=== PATIENT | female | born 1945 | race Caucasian/White ===

== ENCOUNTER 2023-11-29 13:16 | Emergency (ER) | payer OTHER, SELFPAY ==
[2023-11-29 13:22] VITALS: BP 151/83
--- NOTE | 2023-11-29 15:14 | ED.GENMED ---
History of Present Illness
General
Chief Complaint: Head Injury
Source: patient
Exam Limitations: none
Time Seen by Provider: 11/29/23 14:32
Nursing documentation reviewed up to this point in time: agreed with
History of Present Illness
History of Present Illness:
Patient is a 78-year-old female who presents today for evaluation. Patient reports she was walking her dog and she describes tripping hitting her face on the pavement at a local park. She denies loss of consciousness she got herself up and started
walking home and picked her up. She denies any headache nausea vomiting neck pain. She denies any extremity pain. She report she did chipped her front teeth and she has abrasions lacerations above her upper lip. She is not on blood
thinners.
Review of Systems
Review of Systems
Allergies reviewed?: Yes
All Other Systems: ROS reviewed and negative except as documented in HPI and ROS
Constitutional: Reports no symptoms; Denies fever, fatigue or chills
EENT: Reports other (Patient chipped her front tooth)
Musculoskeletal: Denies neck pain or back pain
Skin: Reports other (Laceration above lip to face)
Neurological: Reports other (No loss of conscious no headache); Denies dizzy or headache
Psychiatric: Reports no symptoms
Phy Exam
General Physical Exam
General Presentation: no apparent distress
General age: appears stated age
General Skin: warm and dry
General Habitus: normal
General Mental: alert
ENT Exam
ENT Exam: EOMI and other (Patient with left front chipped tooth)
Eye Exam
Eye Exam: PERRL and EOMI
Eye Exam General: PERRL: bilateral and EOM intact: bilateral
Pupil Exam: Bilateral: round and reactive
Skin Exam
Skin Exam: normal color, warm/dry and other (+ 2 cm laceration flap above upper lip not involving lip with surrounding abrasion)
Psychiatric Exam
Psychiatric Exam: normal mood/affect
Course
Vital Signs
Initial and Last Documented VS:
Initial Vital Signs
Pulse Resp BP Pulse Ox
87 16 151/83 96
11/29/23 13:22 11/29/23 13:22 11/29/23 13:22 11/29/23 13:22
Last Documented Vital Signs
Pulse Resp BP Pulse Ox
87 16 151/83 96
11/29/23 13:22 11/29/23 13:22 11/29/23 13:22 11/29/23 13:22
Procedures
Laceration Closure
Face:
Status of Wound: clean
Size of Wound in cm: 2
Description of Wound Edges: sharp and flap-well vascularized
Preparation: cleaned with saline
Anesthesia: 1% Lidocaine with epi
Revision/Debridement: routine- no revision
Type of Closure: single layer closure
Skin Closure Material: 6-0 nylon
Number of sutures: 3
MDM/Problems Addressed
MDM/Problems Addressed:
Patient is a 78-year-old female not on blood thinners describes mechanical fall while walking her dog. She landed on her face she denies hitting her head she denies loss of conscious got her set up recalls all events. She complains only of
abrasions and lacerations above her lip and slightly chipped tooth. She presents awake alert no acute distress normal neurologic exam wound repaired as documented. Tetanus is up-to-date, wound care reviewed with patient. We discussed CAT scan of
head however patient reports she did not hit her head does not have a headache and with normal neurologic exam we will hold off however discussed head injury instructions
*Critical Care Note
Total Time (30-74mins, 75-104mins- exclusive of procedures): Not Applicable
ED Attending Note
-
Portions of this chart may have been created with voice recognition software.� Occasional wrong word or��sound alike� substitutions may have occurred due to the inherent limitations of voice recognition software.
Discharge Plan
Departure
Patient Disposition: Home (Routine Discharge)
Date of Disposition: 11/29/23
Time of Disposition: 15:16
Patient with high blood pressure during this ER visit?: Yes
Condition: Fair
Covid-19: Not Applicable
Discharge Problem:
Fall, Laceration, Abrasion, tooth injury
Instructions: Laceration Repair With Stitches (DC), Abrasions ED, Dental Pain ED, Wound Care ED
Referrals:
Timur Moreno MD [Family Provider] -
Activity Restrictions/Additional Instructions:
Keep laceration clean and dry for 24 hours after 24 hours wash twice a day with soap and water pat dry and apply small layer of antibiotic open to the area. Sutures are to be removed in 5 days. Return if any signs of infection of increased pain
swelling redness drainage fever chills. Regarding your chipped front tooth. Please call your dentist. Return if any headaches nausea vomiting dizziness difficulty walking unsteady balance.
Discharge Date and Time
Print Language: CHILEAN
== END 2023-11-29 15:36 | disposition home or self-care (01) ==
LOC: EMR 13:16
PROVIDERS: EMERGENCY PHYSICIAN Emergency Medicine; FAMILY PHYSICIAN Family Medicine
DX: S02.5XXA Fracture of tooth (traumatic), initial encounter for closed fracture (principal); S01.511A Laceration without foreign body of lip, initial encounter; S01.81XA Laceration without foreign body of other part of head, initial encounter; S00.81XA Abrasion of other part of head, initial encounter; W01.0XXA Fall on same level from slipping, tripping and stumbling without subsequent striking against object, initial encounter; Y93.K1 Activity, walking an animal; Y92.830 Public park as the place of occurrence of the external cause; R03.0 Elevated blood-pressure reading, without diagnosis of hypertension; Z88.1 Allergy status to other antibiotic agents
CPT/HCPCS: 99282; 12011

== ENCOUNTER → 2024-02-22 15:57 | Outpatient (REF) | payer OTHER, SELFPAY | LOC: WDC 15:57 | PROVIDERS: ATTENDING PHYSICIAN Family Medicine | DX: Z12.31 Encounter for screening mammogram for malignant neoplasm of breast (principal) | CPT/HCPCS: 77063; 77067 ==

== ENCOUNTER → 2024-03-29 09:39 | Outpatient (REF) | payer MEDICARE, SELFPAY | LOC: RAD 09:39 | PROVIDERS: ATTENDING PHYSICIAN Family Medicine | DX: J10.1 Influenza due to other identified influenza virus with other respiratory manifestations (principal) | CPT/HCPCS: 71046 ==

== ENCOUNTER → 2024-06-02 14:17 | Outpatient (REF) | payer MEDICARE, SELFPAY | LOC: HWRAD 14:17 | PROVIDERS: ATTENDING PHYSICIAN Internal Medicine Rheumatology; FAMILY PHYSICIAN Family Medicine | DX: M81.0 Age-related osteoporosis without current pathological fracture (principal); Z13.820 Encounter for screening for osteoporosis | CPT/HCPCS: 77080 ==

== ENCOUNTER → 2024-08-29 11:55 | Outpatient (REF) | payer MEDICARE, SELFPAY | LOC: RAD 11:55 | PROVIDERS: ATTENDING PHYSICIAN Internal Medicine Rheumatology; FAMILY PHYSICIAN Family Medicine | DX: M17.0 Bilateral primary osteoarthritis of knee (principal) | CPT/HCPCS: 73560; 73565 ==